=== PATIENT | female | born 1965 | race African-American/Black ===

== ENCOUNTER 2017-03-13 20:57 | Observation (INO) | payer BC, OTHER ==
[~2017-03-13] VITALS: Ht 172.7 cm; Wt 111.2 kg
[~2017-03-13 20:57] MED LIST: GLUCTAB PO; TESS200C PO; TUSSSUS PO; TYLE3 PO
[2017-03-13 21:06] VITALS: BP 133/75; PULSE 73; RESP 16; TEMP 97.9; O2SAT 99
[2017-03-13 21:22] VITALS: BP 141/78; PULSE 71; RESP 18; O2SAT 100
--- NOTE | 2017-03-13 21:40 | PD ---
HPI Chief Complaint: Pain: Acute or Chronic Time Seen by Provider: 21:27 Travel History International Travel<30 days: No Contact w/Intl Traveler<30days: No History of Present Illness HPI 52yo F with PMH of DM presents to the ED with c/o chest pain. States it started in left chest 3 days ago but since last night it has been midsternal and constant. It is sharp and worst with movement. Denies any fever, sob, n/v , abdominal pain, focal weakness or numbness. Pt has chronic cough for months that is worst at night. 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 Thinks last stress test was also 2 years ago. PFSH Past Medical History Diabetes: Yes (STS BORDERLINE) Diminished Hearing: No GERD: No (BEING TREATED FOR EPIGASTRIC PAIN) Respiratory: Yes (STS CHRONIC COUGH DUE TO MOLD IN HER APT.) : 6 Para: 5 Miscarriage: 1 Tubal Ligation: Yes Social History Alcohol Use: No Tobacco Use: No Substance Use: No Allergies-Medications (Allergen,Severity, Reaction): Coded Allergies: Naproxen (Verified Allergy, Intermediate, HIVES, 03/13/17) Reported Meds & Prescriptions Reported Meds & Active Scripts Active Reported Zantac (Ranitidine HCl) 300 Mg Tab 300 Mg PO DAILY Vitamin D3 (Cholecalciferol) 3,000 Unit Tab 4,000 Units PO DAILY Metformin (Metformin HCl) 500 Mg Tab 500 Mg PO DAILY With a meal Review of Systems Except as stated in HPI: all other systems reviewed are Neg Physical Exam Narrative GENERAL: 52yo F not in distress. SKIN: Focused skin assessment warm/dry. HEAD: Atraumatic. Normocephalic. EYES: Pupils equal and round. No scleral icterus. No injection or drainage. ENT: No nasal bleeding or discharge. Mucous membranes pink and moist. NECK: Trachea midline. No JVD. CARDIOVASCULAR: Regular rate and rhythm. No murmur appreciated. RESPIRATORY: No accessory muscle use. Clear to auscultation. Breath sounds equal bilaterally. CHEST WALL: No rash. No reproducible ttp. GASTROINTESTINAL: Abdomen soft, non-tender, nondistended. MUSCULOSKELETAL: No obvious deformities. No clubbing. No cyanosis. +Trace bilateral lower ext edema. NEUROLOGICAL: Awake and alert. No obvious cranial nerve deficits. Motor grossly within normal limits. Normal speech. PSYCHIATRIC: Appropriate mood and affect; insight and judgment normal. Data Data Last Documented VS Vital Signs Date Time Temp Pulse Resp B/P Pulse Ox O2 Delivery O2 Flow Rate FiO2 03/13/17 23:18 79 18 131/72 99 Room Air 03/13/17 21:06 97.9 Orders Electrocardiogram (03/13/17 21:34) Basic Metabolic Panel (Bmp) (03/13/17 21:34) B-Type Natriuretic Peptide (03/13/17 21:34) Ckmb (Isoenzyme) Profile (03/13/17 21:34) Complete Blood Count With Diff (03/13/17 21:34) Prothrombin Time / Inr (Pt) (03/13/17 21:34) Act Partial Throm Time (Ptt) (03/13/17 21:34) Troponin I (03/13/17 21:34) Chest, Single Ap (03/13/17 21:34) Ecg Monitoring (03/13/17 21:34) Bilateral Bp Monitoring (03/13/17 21:34) Iv Access Insert/Monitor (03/13/17 21:34) Oximetry (03/13/17 21:34) Oxygen Administration (03/13/17 21:34) Sodium Chloride 0.9% Flush (Ns Flush) (03/13/17 21:45) Nitroglycerin Sl (Nitrostat Sl) (03/13/17 21:45) Aspirin (Aspirin) (03/13/17 22:15) CKMB (03/13/17 21:40) CKMB% (03/13/17 21:40) Admit Order (Ed Use Only) (03/13/17 23:21) Labs Laboratory Tests Test 03/13/17 21:40 White Blood Count 6.8 TH/MM3 Red Blood Count 3.78 MIL/MM3 Hemoglobin 11.7 GM/DL Hematocrit 35.3 % Mean Corpuscular Volume 93.3 FL Mean Corpuscular Hemoglobin 30.9 PG Mean Corpuscular Hemoglobin 33.1 % Concent Red Cell Distribution Width 13.9 % Platelet Count 256 TH/MM3 Mean Platelet Volume 8.9 FL Neutrophils (%) (Auto) 53.6 % Lymphocytes (%) (Auto) 36.4 % Monocytes (%) (Auto) 5.3 % Eosinophils (%) (Auto) 4.1 % Basophils (%) (Auto) 0.6 % Neutrophils # (Auto) 3.6 TH/MM3 Lymphocytes # (Auto) 2.5 TH/MM3 Monocytes # (Auto) 0.4 TH/MM3 Eosinophils # (Auto) 0.3 TH/MM3 Basophils # (Auto) 0.0 TH/MM3 CBC Comment DIFF FINAL Differential Comment Prothrombin Time 10.6 SEC Prothromb Time International 1.0 RATIO Ratio Activated Partial 25.4 SEC Thromboplast Time Sodium Level 143 MEQ/L Potassium Level 3.9 MEQ/L Chloride Level 106 MEQ/L Carbon Dioxide Level 29.2 MEQ/L Anion Gap 8 MEQ/L Blood Urea Nitrogen 17 MG/DL Creatinine 0.79 MG/DL Estimat Glomerular Filtration 92 ML/MIN Rate Random Glucose 118 MG/DL Calcium Level 8.9 MG/DL Total Creatine Kinase 156 U/L Creatine Kinase MB LESS THAN 0.5 NG/ML Troponin I LESS THAN 0.02 NG/ML B-Type Natriuretic Peptide 9 PG/ML MDM Medical Decision Making Medical Screen Exam Complete: Yes Emergency Medical Condition: Yes Interpretation(s) EKG: NSR 64bpm. Normal axis. No ST segment elevation or depression. Differential Diagnosis ACS vs. musculoskeletal pain vs. GERD Narrative Course 52yo F with atypical chest pain. She does have diabetes. Labs reviewed, no leukocytosis. Troponin negative. CKMB negative. CXR showed no acute disease. Pt given aspirin 325mg PO. States nitro gives her headache so she refused sublingual nitro. Will admit pt to chest pain center. Discussed with Dr. Lam and accepted to his service. Diagnosis Primary Impression: Chest pain Qualified Code: R07.9 - Chest pain, unspecified type Admitting Information Admitting Physician Requests: Susan Saeed DO March 13, 2017 21:40
[2017-03-13] MEDS: NITROGLYCERIN 0.4 MG SL 25 TABS/BTL SL SCH ×2 (21:45→21:50)
[2017-03-13] MEDS ORDERED: SODIUM CHLORIDE 0.9% FLUSH 10 ML FLUSH IVF PRN (21:45)
[2017-03-13] MEDS ORDERED: METF500T PO (21:47)
[2017-03-13] MEDS ORDERED: ZANT300T PO (21:48)
[2017-03-13] MEDS ORDERED: VITA3000 PO (21:48)
[2017-03-13 21:51] LABS: AUTOMATED NEUTROPHIL # 3.6 TH/MM3 (1.8-7.7); BASOPHIL % 0.6 % (0.0-2.0); EOSINOPHIL # 0.3 TH/MM3 (0-0.4); EOSINOPHIL % 4.1 % (0.0-4.0); HEMATOCRIT 35.3 % (35.0-46.0); HEMO FLAGS DIFF FINAL; LYMPH % 36.4 % (9.0-44.0); LYMPHOCYTE # 2.5 TH/MM3 (1.0-4.8); MEAN CELL VOLUME 93.3 FL (80.0-100.0); MEAN CORPUSCULAR HEMOGLOBIN 30.9 PG (27.0-34.0); MEAN CORPUSCULAR HGB CONC 33.1 % (32.0-36.0); MONO % 5.3 % (0.0-8.0); NEUT % 53.6 % (16.0-70.0); PLATELET COUNT 256 TH/MM3 (150-450); RED BLOOD COUNT 3.78 MIL/MM3 (4.00-5.30); RED CELL DISTRIBUTION WIDTH 13.9 % (11.6-17.2); WHITE BLOOD COUNT 6.8 TH/MM3 (4.0-11.0)
--- NOTE | 2017-03-13 22:00 | RADHPO ---
EXAM DATE/TIME: 03/13/2017 21:40 [facility] COMPARISON: No previous studies available for comparison. INDICATIONS : Lower chest pain for four days. MEDICAL HISTORY : None. SURGICAL HISTORY : None. ENCOUNTER: Initial ACUITY: 4 - 6 days PAIN SCORE: 6/10 LOCATION: Bilateral lower chest FINDINGS: A single view of the chest demonstrates the lungs to be symmetrically aerated without evidence of mas s, infiltrate or effusion. The cardiomediastinal contours are unremarkable. Osseous structures are intact. CONCLUSION: No acute disease. Dann Portillo MD on March 13, 2017 at 21:58 Board Certified Radiologist. This report was verified electronically.
[2017-03-13 22:01] LABS: CHLORIDE 106 MEQ/L (98-107); POTASSIUM 3.9 MEQ/L (3.5-5.1); SODIUM (NA) 143 MEQ/L (136-145)
[2017-03-13 22:04] LABS: ANION GAP 8 MEQ/L (5-15); APTT (PATIENT) 25.4 SEC (24.3-30.1); BICARBONATE 29.2 MEQ/L (21.0-32.0); BLOOD UREA NITROGEN 17 MG/DL (7-18); PROTHROMBIN TIME - PATIENT 10.6 SEC (9.8-11.6)
[2017-03-13 22:07] LABS: GLOMERULAR FILTRATION RATE 92 ML/MIN (>89)
[2017-03-13 22:10] LABS: CREATINE KINASE 156 U/L (26-192)
[2017-03-13] MEDS ORDERED: ASPIRIN 325 MG TAB PO ONE (22:15)
[2017-03-13 22:22] LABS: CKMB LESS THAN 0.5 NG/ML (0.5-3.6)
[2017-03-13 22:35] VITALS: BP_SYST 122; BP_SYST 131; BP_DIAS 61; BP_DIAS 69; PULSE 73; RESP 18; O2SAT 98
[2017-03-13 22:55] VITALS: BP 122/69; PULSE 84; RESP 18; O2SAT 100
[2017-03-13 23:18] VITALS: BP 131/72; PULSE 79; RESP 18; O2SAT 99
[2017-03-13 23:30] VITALS: BP 123/71; PULSE 62; RESP 20; O2SAT 100
[2017-03-13] MEDS ORDERED: SODIUM CHLOR 0.9% 1000 ML INJ 1,000 ML IV SCH (23:55)
[2017-03-14] VITALS (7 sets, daily range): BP systolic 116–151; BP diastolic 75–85; PULSE 55–65; RESP 16–18; TEMP 97.3–97.9; O2SAT 95–100
[2017-03-14] MEDS ORDERED: SENNOSIDES 8.6 MG TAB PO PRN
[2017-03-14] MEDS ORDERED: ONDANSETRON HCL 4 MG/2 ML VIAL IVP PRN
[2017-03-14] MEDS ORDERED: NALOXONE HCL 0.4 MG/ML AMP IV PRN
[2017-03-14] MEDS ORDERED: SODIUM CHLORIDE 0.9% FLUSH 10 ML FLUSH IV FLUSH PRN
[2017-03-14] MEDS ORDERED: MORPHINE SULFATE 4 MG/ML INJ IV PRN
[2017-03-14] MEDS ORDERED: ACETAMINOPHEN 325 MG TAB PO PRN ×2
[2017-03-14] MEDS ORDERED: DEXTROSE 50% IN WATER 50 ML VIAL(D50) IV PRN (01:30)
[2017-03-14] MEDS ORDERED: DEXTROSE 5% IN WATE 1000ML INJ 1,000 ML IV SCH (01:30)
[2017-03-14] MEDS ORDERED: GLUCAGON 1 MG/ML VIAL OTHER PRN (01:30)
[2017-03-14 01:43] LABS: CREATINE KINASE 151 U/L (26-192)
[2017-03-14 01:55] LABS: CKMB LESS THAN 0.5 NG/ML (0.5-3.6)
[2017-03-14] MEDS: INSULIN ASPART SUPPLEMENTAL SCALE SQ SCH ×2 (07:00→11:00)
--- NOTE | 2017-03-14 07:11 | HHI.HP ---
[facility] Aadli Gongora DO Admission Diagnosis Chest pain Diagnoses: (1) Chest pain Diagnosis: Principal (2) Diabetes Diagnosis: Principal Chief Complaint: Chest pain Travel History International Travel<30 Days: No Contact w/Intl Traveler <30 Da: No Traveled to Known Affected Are: No History of Present Illness Written by Solis Merino, acting as scribe for Dr. Grimaldo on 03/14/17 at 07: 32. 52-year-old female with known history of diabetes, gastroesophageal reflux who presented to hospital for evaluation of chest discomfort. Patient states that her symptoms started approximately a month ago when she had diagnosed with bronchitis. She states that she usually gets seasonal allergies which causes her to cough for a prolonged period of time. She was treated in January for bronchitis with Tessalon, Zithromax. Ever since then she has been having cough mainly at nighttime. She indicates that she has had intermittent chest discomfort over last month, however worsening since Sunday. She states that the discomfort is located in the midsternal region and in the left anterior chest. She indicates that the pain usually happens whenever she does not eat on time and she sometimes feels like indigestion. Intermittently she will belch and discomfort will go away. Sunday she states the pain came back more intense and she took an aspirin and went to bed and when she woke up it was improved. She went to work yesterday and every time that she moved or twisted her upper torso she states that she was getting a stabbing sensation in the middle part of her chest. Because of those changes she decided come to emergency department for evaluation. Patient denies any radiation to neck, back , shoulder, arm, denies any nausea, vomiting, diaphoresis, shortness of breath, dyspnea, lightheadedness, dizziness. Patient indicates that the pain is a constant pain 2/10 on a pain scale. She states that in 2003 she did go to [facility] and she underwent an exercise stress test at that time it was normal. Patient does have gastroesophageal reflux issue being treated by Dr. Lima. She does have a appointment set up for upper endoscopy on March. She is actively taken Pepcid for treatment. Patient was evaluated in emergency department and because of her underlying symptoms, risk factors she is recommended observation chest pain center. Review of Systems Constitutional: DENIES: Diaphoretic episodes, Fatigue, Fever, Weight gain, Weight loss, Chills, Dizziness, Change in appetite, Night Sweats Eyes: DENIES: Blurred vision, Diplopia, Eye inflammation, Eye pain, Vision loss , Double Vision Ears, nose, mouth, throat: DENIES: Vertigo, Nasal discharge, Throat pain, Ear Pain, Running Nose, Sinus Pain Respiratory: DENIES: Apneas, Cough, Snoring, Wheezing, Hemoptysis, Sputum production, Shortness of breath Cardiovascular: COMPLAINS OF: Chest pain, DENIES: Palpitations, Syncope, Dyspnea on Exertion, Lower Extremity Edema, Orthopnea Gastrointestinal: DENIES: Abdominal pain, Black stools, Bloody stools, Constipation, Diarrhea, Nausea, Vomiting, Difficulty Swallowing, Anorexia Musculoskeletal: COMPLAINS OF: Joint pain, Back pain Neurologic: DENIES: Abnormal gait, Headache, Localized weakness, Paresthesias, Seizures, Speech Problems, Tremor, Poor Balance Past Family Social History Past Medical History Diabetes Gastroesophageal reflux Past Surgical History Tubal ligation Cholecystectomy Reported Medications Reported Meds & Active Scripts Active Reported Zantac (Ranitidine HCl) 300 Mg Tab 300 Mg PO DAILY Vitamin D3 (Cholecalciferol) 3,000 Unit Tab 4,000 Units PO DAILY Metformin (Metformin HCl) 500 Mg Tab 500 Mg PO DAILY With a meal Allergies: Coded Allergies: Naproxen (Verified Allergy, Intermediate, HIVES, 03/13/17) Family History Reviewed and unremarkable for any heart disease, diabetes, cancer, seizures, stroke Social History Patient denies any tobacco, alcohol or illicit drugs Physical Exam Vital Signs Vital Signs Date Time Temp Pulse Resp B/P Pulse Ox O2 Delivery O2 Flow Rate FiO2 03/14/17 04:00 97.3 55 16 116/81 95 03/14/17 02:23 18 03/14/17 01:00 58 03/14/17 00:50 64 18 119/75 100 03/14/17 00:47 99 21 03/13/17 23:30 62 20 123/71 100 Room Air 03/13/17 23:18 79 18 131/72 99 Room Air 03/13/17 22:55 84 18 122/69 100 Room Air 03/13/17 22:35 73 18 131/61 98 Room Air 122/69 03/13/17 21:22 03/13/17 21:22 71 18 141/78 100 Room Air 03/13/17 21:06 97.9 73 16 133/75 99 Physical Exam GENERAL: Well-developed, well-nourished, in no acute distress. alert and orientated HEENT: Head is normocephalic without any lesions or masses noted. Facial features are symmetric. Eyes: Pupils equal round reactive to light. Extraocular muscles are intact. Conjunctivae were clear. Oropharyngeal: Pharynx without any erythema edema. Tongue is midline without deviation. Buccal mucosa is moist without any masses or lesions NECK: Supple without any masses. Trachea midline no deviation. No JVD, no bruits are appreciated CARDIAC: Regular rhythm, regular rate. S1/S2 are heard. No murmurs gallops or rubs. Reproducible chest wall tenderness LUNGS: Clear to auscultation bilaterally. No wheeze, rhonchi or rales. No use of accessory muscles on inspiration or expiration. ABDOMEN: Soft, nontender. Nondistended. Bowel sounds heard in all 4 quadrants. No organomegaly or masses. Negative rebound, negative guarding EXTREMITIES: No edema, pulses are equal bilaterally. No cyanosis or clubbing NEUROLOGY: Mood and affect appear appropriate. Cranial nerves II through XII grossly intact. Muscle strength 5/5 in upper and lower extremities bilaterally. Deep tendon reflexes are 2+ in upper and lower extremities bilaterally. Laboratory Laboratory Tests Test 03/13/17 03/14/17 21:40 00:30 White Blood Count 6.8 Red Blood Count 3.78 Hemoglobin 11.7 Hematocrit 35.3 Mean Corpuscular Volume 93.3 Mean Corpuscular Hemoglobin 30.9 Mean Corpuscular Hemoglobin 33.1 Concent Red Cell Distribution Width 13.9 Platelet Count 256 Mean Platelet Volume 8.9 Neutrophils (%) (Auto) 53.6 Lymphocytes (%) (Auto) 36.4 Monocytes (%) (Auto) 5.3 Eosinophils (%) (Auto) 4.1 Basophils (%) (Auto) 0.6 Neutrophils # (Auto) 3.6 Lymphocytes # (Auto) 2.5 Monocytes # (Auto) 0.4 Eosinophils # (Auto) 0.3 Basophils # (Auto) 0.0 CBC Comment DIFF FINAL Differential Comment Prothrombin Time 10.6 Prothromb Time International 1.0 Ratio Activated Partial 25.4 Thromboplast Time Sodium Level 143 Potassium Level 3.9 Chloride Level 106 Carbon Dioxide Level 29.2 Anion Gap 8 Blood Urea Nitrogen 17 Creatinine 0.79 Estimat Glomerular Filtration 92 Rate Random Glucose 118 Calcium Level 8.9 Total Creatine Kinase 156 151 Creatine Kinase MB LESS THAN 0.5 LESS THAN 0.5 Troponin I LESS THAN 0.02 LESS THAN 0.02 B-Type Natriuretic Peptide 9 Result Diagram: 03/13/17213903/13/172139 Imaging Last Impressions Chest X-Ray 03/13/172133 Signed Impressions: Service Date/Time: Monday, March 13, 2017 21:40 - CONCLUSION: No acute disease. Dann Portillo MD Assessment and Plan Assessment and Plan Chest pain Patient with increased risk factors include age, diabetes Patient will be ruled out for acute coronary event with serial cardiac enzymes , serial EKGs Nuclear stress test was performed which was unremarkable for any ischemia, low risk We'll continue aspirin, oxycodone for pain. Patient refuses nitroglycerin because it causes her to have severe headache Possible etiologies could be musculoskeletal, bronchospasm, pleurisy Diabetes Hold metformin at this time, until diet is resumed Accu-Cheks and sliding scale insulin DVT prevention Sequential compression devices Discharge disposition Discharge home in stable condition Activity: Ad letty. Diet: Diabetic diet Medications per medication reconciliation Follow-up primary medical doctor in one week This note was transcribed by scribe [Solis Merino]. I, Dr. Abran Grimaldo personally performed the history, physical exam, and medical decision making; and confirmed the accuracy of the information in the transcribed note. Authenticated by Dr. Abran Grimaldo on 03/14/17 at 09:16. Problem Qualifiers (1) Chest pain: Qualified Code: R07.9 - Chest pain, unspecified type (2) Diabetes: Qualified Code: E11.8 - Type 2 diabetes mellitus with complication, without long-term current use of insulin Solis Merino March 14, 2017 07:11 Abran Grimaldo MD March 14, 2017 09:16
[2017-03-14 07:36] LABS: AUTOMATED NEUTROPHIL # 2.5 TH/MM3 (1.8-7.7); BASOPHIL % 0.2 % (0.0-2.0); EOSINOPHIL # 0.2 TH/MM3 (0-0.4); HEMATOCRIT 34.4 % (35.0-46.0); HEMO FLAGS DIFF FINAL; LYMPH % 41.6 % (9.0-44.0); LYMPHOCYTE # 2.2 TH/MM3 (1.0-4.8); MEAN CELL VOLUME 93.6 FL (80.0-100.0); MEAN CORPUSCULAR HEMOGLOBIN 31.6 PG (27.0-34.0); MEAN CORPUSCULAR HGB CONC 33.7 % (32.0-36.0); MONO % 8.6 % (0.0-8.0); NEUT % 45.6 % (16.0-70.0); PLATELET COUNT 240 TH/MM3 (150-450); RED BLOOD COUNT 3.68 MIL/MM3 (4.00-5.30); RED CELL DISTRIBUTION WIDTH 13.8 % (11.6-17.2); WHITE BLOOD COUNT 5.4 TH/MM3 (4.0-11.0)
[2017-03-14 07:48] LABS: POTASSIUM 3.8 MEQ/L (3.5-5.1)
[2017-03-14 07:51] LABS: BICARBONATE 28.9 MEQ/L (21.0-32.0)
[2017-03-14 07:56] LABS: CREATINE KINASE 124 U/L (26-192)
[2017-03-14 08:08] LABS: CKMB LESS THAN 0.5 NG/ML (0.5-3.6)
[2017-03-14] MEDS ORDERED: SODIUM CHLORIDE 0.9% FLUSH 10 ML FLUSH IV FLUSH SCH (09:00)
[2017-03-14] MEDS ORDERED: DOCUSATE SODIUM 100 MG CAP PO SCH (09:00)
[2017-03-14] MEDS ORDERED: REGADENOSON INJ 0.4 MG/5 ML SYR IV ONE (09:51)
--- NOTE | 2017-03-14 11:24 | RADHPO ---
EXAM DATE/TIME: 03/14/2017 09:58 [facility] COMPARISON: No previous studies available for comparison. INDICATIONS : Midsternal chest pain for 3 days. Angina. DOSE: 35 mCi Tc99m Myoview at stress. 11 mCi Tc99m Myoview at rest. 0.4 mg Lexiscan STRESS SYMPTOMS: Tired feeling, abdominal pressure and headache. EJECTION FRACTION: 62% MEDICAL HISTORY : Gastroesophageal reflux disease. Diabetes mellitus type 2. SURGICAL HISTORY : Tubal ligation. Cholecystectomy. ENCOUNTER: Initial ACUITY: 3 days PAIN SCALE: 8/10 LOCATION: Midsternal chest TECHNIQUE: The patient underwent pharmacologic stress with infusion of prescribed dose. Continuous ECG tracing was monitored during stress. Gated SPECT imaging was performed after stress and conventional SPECT i maging was performed at rest. The examination was performed on a SPECT/CT scanner, both attenuation and non-corrected datasets were reviewed. FINDINGS: DISTRIBUTION: The maximum perfused segment at stress is in the posterobasal wall. PERFUSION STUDY: The pattern of perfusion at stress is within normal limits. GATED STUDY: There is intact wall motion and thickening without hypokinetic or dyskinetic segments. CONCLUSION: Normal examination. RISK CATEGORY: Low (<1% Annual Mortality Rate) Jose Conti MD on March 14, 2017 at 11:20 Board Certified Radiologist. This report was verified electronically.
--- NOTE | 2017-03-14 13:07 | HHI.DCPOC ---
Discharge Care Plan Diagnosis: (1) Chest pain Goals to Promote Your Health * To prevent worsening of your condition and complications * To maintain your health at the optimal level Directions to Meet Your Goals Take your medications as prescribed Follow your dietary instruction Follow activity as directed Keep your appointments as scheduled Take your immunizations and boosters as scheduled If your symptoms worsen call your PCP, if no PCP go to Urgent Care Center or Emergency Room Smoking is Dangerous to Your Health. Avoid second hand smoke Call the 24-hour hour crisis hotline for domestic abuse at Solis Merino March 14, 2017 13:07
--- NOTE | 2017-03-14 13:45 | TR ---
Date Performed: 03/14/2017 Time Performed: 10:23:26 DOCTOR: Harman Bassett DRUG LIST: CLINICAL HISTORY: REASON FOR TEST: Chest pain REASON FOR ENDING: OBSERVATION: CONCLUSION: Lexiscan stress test was performed under standard four minute protocol. Radionuclid e was injected one minute prior to ending the test. No electrocardiographic abormalities were present to suggest ischemia. Nuclear imaging and interpretation are pending. COMMENTS:
--- NOTE | 2017-03-14 19:29 | EKG ---
Date Performed: 03/14/2017 Time Performed: 03:35:04 PTAGE: 52 years EKG: Sinus bradycardia rSr'(V1) - probable normal variant Borderline ECG Compared to prior iris ng no significant change DOCTOR: Dillon Carmona Interpretating Date/Time 03/14/2017 19:27:44
--- NOTE | 2017-03-14 19:32 | EKG ---
Date Performed: 03/14/2017 Time Performed: 00:33:24 PTAGE: 52 years EKG: Sinus bradycardia. rSr'(V1) - probable normal variant Borderline ECG PREVIOUS TRACING : 03/13/2017 21.43 Compared to prior tracing no significant change DOCTOR: Dillon Carmona Interpretating Date/Time 03/14/2017 19:30:42
--- NOTE | 2017-03-14 19:35 | EKG ---
Date Performed: 03/13/2017 Time Performed: 21:43:28 PTAGE: 52 years EKG: Sinus rhythm . rSr'(V1) - probable normal variant Normal ECG NO PREVIOUS TRACING DOCTOR: Dillon Carmona Interpretating Date/Time 03/14/2017 19:35:14
[2017-03-14] MEDS ORDERED: FAMOTIDINE 20 MG TAB PO SCH (21:00)
[2017-03-15] MEDS ORDERED: metFORMIN HCL 500 MG TAB PO SCH (09:00)
[2017-03-15] MEDS ORDERED: CHOLECALCIFEROL (VIT D3) 1000 UNIT TAB PO SCH (09:00)
[2017-04-04] MEDS ORDERED: PANT40TA3 PO (12:10)
== END 2017-03-14 14:26 | disposition home or self-care (01) ==
LOC: PHED 20:57 → PHEDA 23:23 → PH3A 03-14 00:50
PROVIDERS: ADMIT Hospitalist; ATTEND Hospitalist
DX: R07.89 Other chest pain (principal); E11.8 Type 2 diabetes mellitus with unspecified complications; K21.9 Gastro-esophageal reflux disease without esophagitis; Z79.84 Long term (current) use of oral hypoglycemic drugs; Z88.8 Allergy status to other drugs, medicaments and biological substances
CPT/HCPCS: 71010; 78452; 80048; 82550; 82552; 82948; 83880; 84484; 85025; 85610; 85730; 93005; 93017; 99285; A9502; G0378; J2785; J7030; J7070

== ENCOUNTER → 2017-04-04 | Outpatient (CLI) | payer OTHER ==
[~2017-04-04] VITALS: Ht 172.7 cm; Wt 111.5 kg
[~2017-04-04] MED LIST changes: +CHLORHEXIDINE GLUCONATE 2 % 1 PACK (2 CLOTHS) TOPICAL PRN; -GLUCTAB PO; +INSULIN HUMAN REGULAR 1,000 UNITS/10 ML VIAL SQ PRN; +LACTATED RINGER'S 1000 ML IV PRN; +METF500T PO; +METOPROLOL TARTRATE 25 MG TAB PO PRN; +PANT40TA3 PO; +POVIDONE IODINE 5% (ANTISEPSIS KIT) 4 APPLICATIONS EACH NARE PRN; +PROPOFOL 200 MG/20 ML AMP IV PUSH ONE; +SODIUM CHLORID 0.9% 500 ML IV PRN; -TESS200C PO; -TUSSSUS PO; -TYLE3 PO; +VITA3000 PO; +ZANT300T PO
[2017-04-04 12:14] VITALS: BP 110/62; PULSE 60; RESP 16; TEMP 97.2; O2SAT 99
[2017-04-04 14:08] VITALS: TEMP 97.8
[2017-04-04 14:30] VITALS: BP 118/69; PULSE 69; RESP 18; O2SAT 100
--- NOTE | 2017-04-06 08:03 | MR ---
cc: FUAD MORGAN,CRISTINO CUEVAS M.D. DATE: 04/04/2017 DATE OF : 1965 TYPE OF PROCEDURE Esophagogastroduodenoscopy with biopsy. INDICATION FOR PROCEDURE The patient is a 52-year-old female who presented to the office with GERD and non-cardiac chest pain. Apparently a pulmonary work-up and cardiac work-up were unremarkable. She has been on pantoprazole in the past. This procedure is being done to evaluate the source of these problems. ENDOSCOPIST Cristino Wang MD TELECASTING ENGINEER GI personnel. ANESTHESIA Diprivan per CLAIM TAKER. INTRAVENOUS MEDICATION See above. INSTRUMENT Pentax video adult gastroscope. PHYSICAL EXAMINATION VITAL SIGNS: Quite stable. She is afebrile. LUNGS: Unremarkable. HEART: No murmurs. ABDOMEN: Soft, nontender. NEUROLOGIC: Alert and oriented x3. CONTINUOUS MONITORING The patient had routine blood pressure monitoring, pulse oximeter/oxygen, and cardiac monitoring. INFORMED CONSENT Obtained with full verbal understanding, the indication for procedure (see above), risks and complications (bleeding, perforation, infection, arrhythmias, mediastinitis, small possibility of , etc.), limitations (we may not see everything due to prep and anatomy especially if there is a lot of blood in the stomach or food is there, etc.), alternatives (upper GI, small bowel follow through, surgery, etc.), benefits (we can potentially see the entire esophagus, stomach, and part of the duodenum, and biopsy, cauterize, inject or dilate various lesions or abnormalities if needed, etc.) All questions were answered, all parties agreed to the procedure. DESCRIPTION OF PROCEDURE The patient was placed in the left lateral decubitus position. The above noted sedation was given in very slow incremental doses. Once an optimal level of sedation was achieved, then the above mentioned gastroscope was inserted and passed into the hypopharyngeal area, esophagus which was inspected in its entire length, through the stomach, which was seen in straight view, as well as retroflex view, and the gastric pool was suctioned. The stomach was fully insufflated. The pylorus was entered and the scope passed through the duodenal bulb into the second portion of the duodenum. FINDINGS 1. Esophagus: The gastroesophageal junction was located at 36 cm. The GE junction was irregular. There was one column of salmon-colored mucosa extending upwards for approximately 5 mm. At the top of this mucosa was a 5 mm crater ulcer. There was no hiatal hernia. No esophageal varices or Unique esophagitis seen. On the way out the ulcer and salmon-colored mucosa was biopsied to check for Parrish's and malignancy. 2. Stomach: The stomach was seen on straight view as well as retroflex view. It did distend quite fully. No masses, AVMs, polypoid lesions or gastric varices were seen. In the prepyloric area there were three superficial ulcers, approximately 5 mm in size without a visible vessel. There were also some erosions with black eschars but were not bleeding. Superficial gastritis was also noted there. Biopsies were taken from the ulcers and erosions as well as the angularis, body and fundus to rule out H. Pylori. 3. Duodenum: The pylorus is patent. The duodenal bulb, second and third portion were grossly unremarkable. SPECIMENS GE junction and stomach. TOLERANCE OF PROCEDURE The scope was totally withdrawn. The patient tolerated the procedure quite well with no immediate complications. Lungs, heart, vital signs and the rest of the physical exam was unchanged post procedure. The patient was transported in a stable state to the recovery area. IMPRESSION 1. Esophageal ulcer. 2. Multiple gastric ulcers as mentioned above. 3. Multiple gastric erosions/gastritis as mentioned above. RECOMMENDATIONS 1. Await biopsies. 2. Post-procedure protocol. 3. Return visit in my office in 1-2 months. 4. Probably will need a repeat upper endoscopy to assess healing, but will await biopsies first. 5. Change pantoprazole to something stronger such as Dexilant 60 mg, 30 minutes before breakfast, side effects were discussed. 6. The patient may be discharged once post-anesthesia protocol has been met. 7. Resume diet and other medications. She states she is currently not taking any NSAIDs. Cristino Wang MD SP/BT /2:14 PM /7:51 AM DA
== END ==
LOC: HEND 11:15
PROVIDERS: ATTEND Internal Medicine Gastroenterology
DX: K21.9 Gastro-esophageal reflux disease without esophagitis (principal); R07.89 Other chest pain; K29.50 Unspecified chronic gastritis without bleeding; K22.10 Ulcer of esophagus without bleeding
CPT/HCPCS: 88305; 88312

== ENCOUNTER → 2017-06-18 | Outpatient (CLI) | payer OTHER ==
[~2017-06-18] MED LIST changes: -CHLORHEXIDINE GLUCONATE 2 % 1 PACK (2 CLOTHS) TOPICAL PRN; +DEXI60CA2; -INSULIN HUMAN REGULAR 1,000 UNITS/10 ML VIAL SQ PRN; -LACTATED RINGER'S 1000 ML IV PRN; -METOPROLOL TARTRATE 25 MG TAB PO PRN; -POVIDONE IODINE 5% (ANTISEPSIS KIT) 4 APPLICATIONS EACH NARE PRN; -PROPOFOL 200 MG/20 ML AMP IV PUSH ONE; -SODIUM CHLORID 0.9% 500 ML IV PRN
--- NOTE | 2017-06-18 17:08 | RADRPT ---
EXAM DATE/TIME: 06/18/2017 14:06 [facility] COMPARISON: No previous studies available for comparison. INDICATIONS : Bilateral flank pain. ORAL CONTRAST: No oral contrast ingested. RADIATION DOSE: 16.63 CTDIvol (mGy) MEDICAL HISTORY : None SURGICAL HISTORY : Tubal ligation. Cholecystectomy. ENCOUNTER: Initial ACUITY: 3 days PAIN SCALE: 4/10 LOCATION: Bilateral flank TECHNIQUE: Volumetric scanning of the abdomen and pelvis was performed. Using automated exposure control and ad justment of the mA and/or kV according to patient size, radiation dose was kept as low as reasonably achievable to obtain optimal diagnostic quality images. DICOM format image data is available electro nically for review and comparison. FINDINGS: LOWER LUNGS: The visualized lower lungs are clear. LIVER: Homogeneous density without lesion. There is no dilation of the biliary tree. No calcified gallston es. SPLEEN: Normal size without lesion. PANCREAS: Within normal limits. KIDNEYS: Normal in size and shape. There is no mass, stone, or hydronephrosis. ADRENAL GLANDS: Within normal limits. VASCULAR: There is no aortic aneurysm. BOWEL/MESENTERY: The stomach, small bowel, and colon demonstrate no acute abnormality. There is no free intraperitone al air or fluid. ABDOMINAL WALL: Within normal limits. RETROPERITONEUM: There is no lymphadenopathy. BLADDER: No wall thickening or mass. REPRODUCTIVE: Within normal limits. INGUINAL: There is no lymphadenopathy or hernia. MUSCULOSKELETAL: Within normal limits for patient age. CONCLUSION: Negative. I do not see an etiology for the bilateral flank pain. Enrique Bartholomew MD FACR on June 18, 2017 at 17:05 Board Certified Radiologist. This report was verified electronically.
== END ==
LOC: HRAD 13:05
PROVIDERS: ATTEND Neuromusculoskeletal Medicine & OMM
DX: R10.9 Unspecified abdominal pain (principal)
CPT/HCPCS: 74176

== ENCOUNTER → 2017-07-18 | Outpatient (CLI) | payer OTHER ==
[~2017-07-18] VITALS: Ht 170.2 cm; Wt 112.3 kg
[~2017-07-18] MED LIST changes: +CHLORHEXIDINE GLUCONATE 2 % 1 PACK (2 CLOTHS) TOPICAL PRN; +INSULIN HUMAN REGULAR 1,000 UNITS/10 ML VIAL SQ PRN; +LACTATED RINGER'S 1000 ML IV PRN; +LIDOCAINE HCL 1% PF 5 ML AMPULE OTHER ONE; +METOPROLOL TARTRATE 25 MG TAB PO PRN; +POVIDONE IODINE 5% (ANTISEPSIS KIT) 4 APPLICATIONS EACH NARE PRN; +PROPOFOL 200 MG/20 ML AMP IV ONE; +SODIUM CHLORID 0.9% 500 ML IV PRN
[2017-07-18 09:46] VITALS: BP 125/70; PULSE 67; RESP 18; TEMP 98.2; O2SAT 98
--- NOTE | 2017-07-18 11:26 | GIPROC ---
[facility] [address] [facility]. [facility], [address] EGD PROCEDURE REPORT EXAM DATE: 07/18/2017 PATIENT NAME: Malka Piña MR #: [id number] BIRTHDATE: 1965 ATTENDING: Cristino Wang MD ORDER #: [id number] HUMAN RESOURCES CLERK: Dany Campoverde and Layne Hope STATUS: outpatient INDICATIONS: The patient is a 52 yr old female here for an EGD due to Gastric ulcer, hx of Marito's PROCEDURE PERFORMED: EGD, diagnostic MEDICATIONS: None and Per Anesthesia. TOPICAL ANESTHETIC: none CONSENT: The patient understands the risks and benefits of the procedure and understands that these risks include, but are not limited to: sedation, allergic reaction, infection, perforation and/or bleeding. Alternative means of evaluation and treatment include, among others: physical exam, x-rays, and/or surgical intervention. The patient elects to proceed with this endoscopic procedure. medical equipment was checked for proper function. Hand hygiene and appropriate measures for infection prevention was taken. After the risks, benefits and alternatives of the procedure were thoroughly explained, Informed consent was verified, confirmed and timeout was successfully executed by the treatment team. The patient was anesthetized with topical anesthesia and the Pentax [id number] endoscope was introduced through the mouth and advanced to the third portion of the duodenum. Retroflexed views revealed no abnormalities The gastroscope was then slowly withdrawn and removed. 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 STOMACH: The mucosa of the stomach appeared normal. DUODENUM: The duodenal mucosa appeared normal. ADVERSE EVENTS: There were no complications. IMPRESSIONS: 1. There was short segment Parrish's esophagus found at the gastroesophageal junction 2. The mucosa of the stomach appeared normal 3. Normal duodenal mucosa 4. Retroflexed views revealed no abnormalities RECOMMENDATIONS: Colonoscopy PATIENT CONDITION: stable DISPOSITION: Home REPEAT EXAM: Return 1 year EGD Cristino Wang MD eSigned: Cristino Wang MD 07/18/2017 11:25 AM cc: PATIENT NAME: Malka Piña MR#: [id number]
--- NOTE | 2017-07-18 11:35 | GIPROC ---
[facility] [address] [facility]. [facility] [place], [address] COLONOSCOPY PROCEDURE REPORT EXAM DATE: 07/18/2017 PATIENT NAME: Malka Piña MR #: [id number] BIRTHDATE: 1965 ENDOSCOPIST: Cristino Wang MD ORDER #: [id number] TEXTILE WORKER: Layne Hope and Dany Campoverde STATUS: outpatient INDICATIONS: The patient is a 52 yr old female here for a colonoscopy due to follow up of adenomatous colonic polyp(s) PROCEDURE PERFORMED: Colonoscopy with biopsy MEDICATIONS: None and Per Anesthesia. PREP QUALITY: fair PREP TYPE:GoLytely ESTIMATED BLOOD LOSS: None CONSENT: The patient understands the risks and benefits of the procedure and understands that these risks include, but are not limited to: sedation, allergic reaction, infection, perforation and/or bleeding. Alternative means of evaluation and treatment include, among others: physical exam, x-rays, and/or surgical intervention. The patient elects to proceed with this endoscopic procedure. medical equipment was checked for proper function. Hand hygiene and appropriate measures for infection prevention was taken. After the risks, benefits and alternatives of the procedure were thoroughly explained, Informed consent was verified, confirmed and timeout was successfully executed by the treatment team. A digital exam was performed and revealed no abnormalities of the rectum The Pentax [id number] endoscope was introduced through the anus and advanced to the cecum, which was identified by both the appendix and ileocecal valve. The instrument was then slowly withdrawn as the colon was fully examined. COLON FINDINGS: Two smooth and polypoid shaped sessile polyps measuring 2 mm in size were found in the proximal descending colon. Multiple biopsies were performed using cold forceps. Mild diverticulosis was noted in the sigmoid colon and descending colon. Small internal hemorrhoids were found. Retroflexed views revealed no abnormalities The scope was then completely withdrawn from the patient and the procedure terminated. PROCEDURE WITHDRAWAL TIME:15minutes ADVERSE EVENTS: There were no complications. IMPRESSIONS: 1. Two sessile polyps were found in the proximal descending colon; multiple biopsies were performed using cold forceps 2. Mild diverticulosis was noted in the sigmoid colon and descending colon 3. Small internal hemorrhoids 4. Retroflexed views revealed no abnormalities 5. Was performed 6. Revealed no abnormalities of the rectum RECOMMENDATIONS: 1. Await biopsy results. Biopsy results will not be ready for 7-10 days. If you don't hear from us in two weeks, call our office for results. 2. High fiber diet RECALL: Return 3 years Colonoscopy Cristino Wang MD eSigned: Cristino Wang MD 07/18/2017 11:35 AM cc: PATIENT NAME: Malka Piña MR#: [id number]
[2017-07-18 12:17] VITALS: BP 133/81; PULSE 64; RESP 18; TEMP 96.8; O2SAT 100
== END ==
LOC: HEND 09:07
PROVIDERS: ATTEND Internal Medicine Gastroenterology
DX: K25.9 Gastric ulcer, unspecified as acute or chronic, without hemorrhage or perforation (principal); K22.70 Barrett's esophagus without dysplasia; K63.5 Polyp of colon; E11.9 Type 2 diabetes mellitus without complications; G47.30 Sleep apnea, unspecified
CPT/HCPCS: 00740; 43235; 45380; 88305; J7120

== ENCOUNTER 2018-03-13 09:06 | Observation (INO) | payer OTHER ==
[~2018-03-13] VITALS: Ht 172.7 cm; Wt 114.5 kg
[2018-03-13] VITALS (13 sets, daily range): BP systolic 107–132; BP diastolic 62–81; PULSE 61–83; RESP 18–20; TEMP 96.2–97.8; O2SAT 97–100
[~2018-03-13 09:06] MED LIST changes: -CHLORHEXIDINE GLUCONATE 2 % 1 PACK (2 CLOTHS) TOPICAL PRN; -DEXI60CA2; +DEXI60CA3; +FLUT1SPR5 EACH NARE; -INSULIN HUMAN REGULAR 1,000 UNITS/10 ML VIAL SQ PRN; -LACTATED RINGER'S 1000 ML IV PRN; -LIDOCAINE HCL 1% PF 5 ML AMPULE OTHER ONE; +MELO7.5T27 PO; -METOPROLOL TARTRATE 25 MG TAB PO PRN; -PANT40TA3 PO; -POVIDONE IODINE 5% (ANTISEPSIS KIT) 4 APPLICATIONS EACH NARE PRN; -PROPOFOL 200 MG/20 ML AMP IV ONE; +RANI150T PO; -SODIUM CHLORID 0.9% 500 ML IV PRN; -ZANT300T PO
--- NOTE | 2018-03-13 09:38 | PD ---
HPI Chief Complaint: Chest Pain Time Seen by Provider: 09:22 Travel History International Travel<30 days: No Contact w/Intl Traveler<30days: No Traveled to known affect area: No History of Present Illness HPI 53-year-old female with a history of diabetes mellitus presents emergency department for evaluation of chest pain that she woke up with about 6:00 this morning. Patient says that the pain is located midsternal and radiates to the back. Says the pain is worse with deep deep breaths, described as achy, 8/10 pain. She says that she coughed up one episode of streaked mucus so she decided to come in for evaluation. She admits to one episode of nausea but denies any significant nausea or vomiting. Says that for approximately 1 week she has had cough cold-like symptoms and has been evaluated by urgent care says that she was given amoxicillin, prednisone and tramadol for lower rib pain, cough and congestion. She admits to a history of similar chest discomfort associated with cold-like symptoms. Patient says that she was evaluated at [facility] for a similar episode of chest pain 2-3 years ago and received a stress test which was normal. Patient previously followed Dr. Bustos but this is been 2-3 years. She denies history of hypertension, hyperlipidemia, or family history of cardiac disease. Denies recent travel, surgeries, history of DVT/PE, cancer. She denies any other medical issues. She does not take aspirin on a daily basis. PFSH Past Medical History Cancer: No Cardiovascular Problems: No Diabetes: Yes Patient Takes Glucophage: Yes Diminished Hearing: No Endocrine: Yes Gastrointestinal Disorders: Yes (GERD) Genitourinary: No Immune Disorder: No Musculoskeletal: No Neurologic: No Psychiatric: No Reproductive: No Respiratory: No ?: Not : 6 Para: 5 Miscarriage: 1 Tubal Ligation: Yes Past Surgical History Cholecystectomy: Yes (laparoscopic) Gynecologic Surgery: Yes (tubal ligation) Social History Alcohol Use: Yes (twice yearly) Tobacco Use: No Substance Use: No Allergies-Medications (Allergen,Severity, Reaction): Coded Allergies: naproxen (Verified Allergy, Intermediate, HIVES, 10/17/17) Reported Meds & Prescriptions Reported Meds & Active Scripts Active Flonase Nasal [place] (Fluticasone Nasal [place]) 50 Mcg/Act [place] 100 Mcg EACH NARE BID Reported Metformin (Metformin HCl) 500 Mg Tab 500 Mg PO BIDPC Vitamin D3 (Cholecalciferol) 3,000 Unit Tab 4,000 Units PO DAILY Review of Systems Except as stated in HPI: all other systems reviewed are Neg Physical Exam Narrative GENERAL: Well-developed, well-nourished in mild distress, anxious SKIN: Focused skin assessment warm/dry. HEAD: Atraumatic. Normocephalic. EYES: Pupils equal and round. No scleral icterus. No injection or drainage. ENT: No nasal bleeding or discharge. Mucous membranes pink and moist. NECK: Trachea midline. No JVD. No lymphadenopathy CARDIOVASCULAR: Regular rate and rhythm. No murmur appreciated. RESPIRATORY: No accessory muscle use. Clear to auscultation. Breath sounds equal bilaterally. GASTROINTESTINAL: Abdomen soft, non-tender, nondistended. Hepatic and splenic margins not palpable. MUSCULOSKELETAL: No obvious deformities. No clubbing. No cyanosis. No edema. NEUROLOGICAL: Awake and alert. No obvious cranial nerve deficits. Motor grossly within normal limits. Normal speech. PSYCHIATRIC: Appropriate mood and affect; insight and judgment normal. Data Data Last Documented VS Vital Signs Date Time Temp Pulse Resp B/P (MAP) Pulse Ox O2 Delivery O2 Flow Rate FiO2 03/13/18 11:32 83 18 115/81 (92) 100 Room Air 03/13/18 09:13 97.8 Orders Orders Electrocardiogram (03/13/18 ) Ckmb (Isoenzyme) Profile (03/13/18 09:31) Complete Blood Count With Diff (03/13/18 09:31) Comprehensive Metabolic Panel (03/13/18 09:31) D-Dimer (03/13/18 09:31) Magnesium (Mg) (03/13/18 09:31) Prothrombin Time / Inr (Pt) (03/13/18 09:31) Act Partial Throm Time (Ptt) (03/13/18 09:31) Troponin I (03/13/18 09:31) Ecg Monitoring (03/13/18 09:31) Bilateral Bp Monitoring (03/13/18 09:31) Iv Access Insert/Monitor (03/13/18 09:31) Oximetry (03/13/18 09:31) Oxygen Administration (03/13/18 09:31) Aspirin Chew (Aspirin Chew) (03/13/18 09:45) Sodium Chloride 0.9% Flush (Ns Flush) (03/13/18 09:45) Albuterol Neb (Albuterol Neb) (03/13/18 09:45) Sodium Chlor 0.9% 1000 Ml Inj (Ns 1000 M (03/13/18 09:45) Chest, Single Ap (03/13/18 ) CKMB (03/13/18 09:30) CKMB% (03/13/18 09:30) Cta Thor Abd Aorta W Iv C W3d (03/13/18 ) Iohexol 350 Inj (Omnipaque 350 Inj) (03/13/18 11:14) Admit Order (Ed Use Only) (03/13/18 11:40) Activity Bed Rest With Brp (03/13/18 11:40) Vital Signs (Adult) Q4H (03/13/18 11:40) Cardiac Rhythm .As Directed (03/13/18 11:40) Notify Dr: Other .PRN (03/13/18 11:40) Notify DrPop Parameters (03/13/18 11:40) Diet Heart Healthy (03/13/18 Lunch) Ckmb (Isoenzyme) Profile (03/13/18 12:30) Ckmb (Isoenzyme) Profile (03/13/18 15:30) Troponin I (03/13/18 12:30) Troponin I (03/13/18 15:30) Electrocardiogram (03/13/18 12:30) Electrocardiogram (03/13/18 15:30) ^ Obtain (03/13/18 11:40) Sodium Chloride 0.9% Flush (Ns Flush) (03/13/18 11:45) Sodium Chloride 0.9% Flush (Ns Flush) (03/13/18 21:00) Acetaminophen (Tylenol) (03/13/18 11:45) Ondansetron Inj (Zofran Inj) (03/13/18 11:45) Mixing Pan Tender / Telemetry ROBERTO.Q8H (03/13/18 11:40) CKMB (03/13/18 12:00) CKMB% (03/13/18 12:00) Labs Laboratory Tests Test 03/13/18 09:30 White Blood Count 5.4 TH/MM3 Red Blood Count 3.96 MIL/MM3 Hemoglobin 12.1 GM/DL Hematocrit 36.7 % Mean Corpuscular Volume 92.6 FL Mean Corpuscular Hemoglobin 30.6 PG Mean Corpuscular Hemoglobin Concent 33.0 % Red Cell Distribution Width 13.7 % Platelet Count 297 TH/MM3 Mean Platelet Volume 8.8 FL Neutrophils (%) (Auto) 54.1 % Lymphocytes (%) (Auto) 34.3 % Monocytes (%) (Auto) 6.7 % Eosinophils (%) (Auto) 4.3 % Basophils (%) (Auto) 0.6 % Neutrophils # (Auto) 2.9 TH/MM3 Lymphocytes # (Auto) 1.9 TH/MM3 Monocytes # (Auto) 0.4 TH/MM3 Eosinophils # (Auto) 0.2 TH/MM3 Basophils # (Auto) 0.0 TH/MM3 CBC Comment DIFF FINAL Differential Comment Prothrombin Time 10.7 SEC Prothromb Time International Ratio 1.1 RATIO Activated Partial Thromboplast Time 24.4 SEC D-Dimer Quantitative (PE/DVT) 0.67 MG/L FEU Blood Urea Nitrogen 15 MG/DL Creatinine 0.70 MG/DL Random Glucose 118 MG/DL Total Protein 7.2 GM/DL Albumin 3.4 GM/DL Calcium Level 8.6 MG/DL Magnesium Level 2.2 MG/DL Alkaline Phosphatase 65 U/L Aspartate Amino Transf (AST/SGOT) 13 U/L Alanine Aminotransferase (ALT/SGPT) 24 U/L Total Bilirubin 0.5 MG/DL Sodium Level 140 MEQ/L Potassium Level 4.0 MEQ/L Chloride Level 109 MEQ/L Carbon Dioxide Level 26.6 MEQ/L Anion Gap 4 MEQ/L Estimat Glomerular Filtration Rate 106 ML/MIN Total Creatine Kinase 114 U/L Creatine Kinase MB 0.5 NG/ML Troponin I LESS THAN 0.02 NG/ML [facility] Medical Decision Making Medical Screen Exam Complete: Yes Emergency Medical Condition: Yes Differential Diagnosis AMI, angina, unstable angina, costochondritis, rib fracture, pneumonia, pneumothorax, aortic dissection, aortic aneurysm Narrative Course 53-year-old female with a history of diabetes mellitus presents emergency department for evaluation of chest pain that she woke up with about 6:00 this morning. Patient says that the pain is located midsternal and radiates to the back. Says the pain is worse with deep deep breaths, described as achy, 8/10 pain. She says that she coughed up one episode of streaked mucus so she decided to come in for evaluation. She admits to one episode of nausea but denies any significant nausea or vomiting. Says that for approximately 1 week she has had cough cold-like symptoms and has been evaluated by urgent care day says that she was given amoxicillin, prednisone and tramadol for lower rib pain, cough and congestion. She admits to a history of similar chest discomfort associated with cold-like symptoms. Patient says that she was evaluated at [facility] for a similar episode of chest pain 2-3 years ago and received a stress test which was normal. Patient previously followed Dr. Bustos but this is been 2-3 years. She denies history of hypertension, hyperlipidemia, or family history of cardiac disease. Denies recent travel, surgeries, history of DVT/PE, cancer. She denies any other medical issues. She does not take aspirin on a daily basis. Vital signs are stable. 162mg aspirin administered. We will avoid nitroglycerin for chest pain as her blood pressure is borderline and she does have symptoms concerning for aneurysm versus dissection. Duo nebs administered as she does have upper respiratory type of symptoms Aspirin and albuterol neb which seem to have decreased her pain. EKG shows sinus rhythm at a rate without STEMI changes CBC & BMP Diagram 03/13/18 09:30 Total Protein 7.2, Albumin 3.4, Calcium Level 8.6, Magnesium Level 2.2, Alkaline Phosphatase 65, Aspartate Amino Transf (AST/SGOT) 13 L, Alanine Aminotransferase (ALT/SGPT) 24, Total Bilirubin 0.5 Cardiac enzymes negative. D-dimer elevated. CTA ordered to rule out dissection and negative for acute process. 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 This was according to her primary care physician with [facility]. It appears that there is no supporting documentation however, it appears that patient has had vaccinations for this does not appear to be a problem at this point. Patient apparently had a stress test 1 year ago here at [facility] which was normal. Based off of history and physical and comorbidity of diabetes, will admit patient to chest pain center for observation. I spoke with Dr. cAosta who accepted this admission. Diagnosis Primary Impression: Chest pain Qualified Codes: R07.1 - Chest pain on breathing Admitting Information Admitting Physician Requests: Observation Condition: Stable Ce Jacobs PA March 13, 2018 09:37
[2018-03-13 09:44] LABS: AUTOMATED NEUTROPHIL # 2.9 TH/MM3 (1.8-7.7); BASOPHIL % 0.6 % (0.0-2.0); EOSINOPHIL # 0.2 TH/MM3 (0-0.4); EOSINOPHIL % 4.3 % (0.0-4.0); HEMATOCRIT 36.7 % (35.0-46.0); HEMOGLOBIN 12.1 GM/DL (11.6-15.3); LYMPH % 34.3 % (9.0-44.0); LYMPHOCYTE # 1.9 TH/MM3 (1.0-4.8); MEAN CELL VOLUME 92.6 FL (80.0-100.0); MEAN CORPUSCULAR HEMOGLOBIN 30.6 PG (27.0-34.0); MEAN PLATELET VOLUME 8.8 FL (7.0-11.0); MONO % 6.7 % (0.0-8.0); MONOCYTE # 0.4 TH/MM3 (0-0.9); NEUT % 54.1 % (16.0-70.0); PLATELET COUNT 297 TH/MM3 (150-450); RED BLOOD COUNT 3.96 MIL/MM3 (4.00-5.30); RED CELL DISTRIBUTION WIDTH 13.7 % (11.6-17.2); WHITE BLOOD COUNT 5.4 TH/MM3 (4.0-11.0)
[2018-03-13] MEDS ORDERED: ASPIRIN 81 MG CHEW TAB PO ONE (09:45)
[2018-03-13] MEDS ORDERED: SODIUM CHLORIDE 0.9% FLUSH 10 ML FLUSH IVF PRN (09:45)
[2018-03-13] MEDS ORDERED: RESP: ALBUTEROL 2.5 MG/3 ML NEB (SCH) INH ONE (09:45)
[2018-03-13] MEDS ORDERED: SODIUM CHLOR 0.9% 1000 ML INJ 1,000 ML IV ONE (09:45)
[2018-03-13 09:57] LABS: CHLORIDE 109 MEQ/L (98-107); SODIUM (NA) 140 MEQ/L (136-145)
[2018-03-13 10:00] LABS: CALCIUM 8.6 MG/DL (8.5-10.1)
[2018-03-13 10:01] LABS: ALBUMIN 3.4 GM/DL (3.4-5.0); BICARBONATE 26.6 MEQ/L (21.0-32.0); GLUCOSE,RANDOM 118 MG/DL (74-106); MAGNESIUM 2.2 MG/DL (1.5-2.5)
[2018-03-13 10:03] LABS: INTERNATIONAL NORMALIZED RATIO 1.1 RATIO; PROTHROMBIN TIME - PATIENT 10.7 SEC (9.8-11.6)
[2018-03-13 10:04] LABS: ALT (GPT) 24 U/L (10-53); GLOMERULAR FILTRATION RATE 106 ML/MIN (>89)
[2018-03-13 10:05] LABS: TOTAL BILIRUBIN ADULT 0.5 MG/DL (0.2-1.0); TOTAL PROTEIN 7.2 GM/DL (6.4-8.2)
[2018-03-13 10:07] LABS: ALKALINE PHOSPHATASE 65 U/L (45-117)
[2018-03-13 10:09] LABS: AST (GOT) 13 U/L (15-37); BLOOD UREA NITROGEN 15 MG/DL (7-18); D-DIMER 0.67 MG/L FEU (0.00-0.50); TROPONIN I LESS THAN 0.02 NG/ML (0.02-0.05)
--- NOTE | 2018-03-13 10:13 | PD ---
Physical Exam Date Seen by Provider: March 13, 2018 Data Data Last Documented VS Vital Signs Date Time Temp Pulse Resp B/P (MAP) Pulse Ox O2 Delivery O2 Flow Rate FiO2 03/13/18 10:05 70 18 132/62 (85) 114/73 (87) 03/13/18 09:40 99 Room Air 03/13/18 09:13 97.8 Orders Orders Electrocardiogram (03/13/18 ) Electrocardiogram (03/13/18 09:31) Ckmb (Isoenzyme) Profile (03/13/18 09:31) Complete Blood Count With Diff (03/13/18 09:31) Comprehensive Metabolic Panel (03/13/18 09:31) D-Dimer (03/13/18:31) Magnesium (Mg) (03/13/18 09:31) Prothrombin Time / Inr (Pt) (03/13/18 09:31) Act Partial Throm Time (Ptt) (03/13/18 09:31) Troponin I (03/13/18 09:31) Ecg Monitoring (03/13/18 09:31) Bilateral Bp Monitoring (03/13/18 09:31) Iv Access Insert/Monitor (03/13/18 09:31) Oximetry (03/13/18 09:31) Oxygen Administration (03/13/18 09:31) Aspirin Chew (Aspirin Chew) (03/13/18 09:45) Sodium Chloride 0.9% Flush (Ns Flush) (03/13/18 09:45) Albuterol Neb (Albuterol Neb) (03/13/18 09:45) Sodium Chlor 0.9% 1000 Ml Inj (Ns 1000 M (03/13/18 09:45) Chest, Single Ap (03/13/18 ) CKMB (03/13/18 09:30) CKMB% (03/13/18 09:30) Cta Thor Abd Aorta W Iv C W3d (03/13/18 ) Labs Laboratory Tests Test 03/13/18 09:30 White Blood Count 5.4 TH/MM3 Red Blood Count 3.96 MIL/MM3 Hemoglobin 12.1 GM/DL Hematocrit 36.7 % Mean Corpuscular Volume 92.6 FL Mean Corpuscular Hemoglobin 30.6 PG Mean Corpuscular Hemoglobin Concent 33.0 % Red Cell Distribution Width 13.7 % Platelet Count 297 TH/MM3 Mean Platelet Volume 8.8 FL Neutrophils (%) (Auto) 54.1 % Lymphocytes (%) (Auto) 34.3 % Monocytes (%) (Auto) 6.7 % Eosinophils (%) (Auto) 4.3 % Basophils (%) (Auto) 0.6 % Neutrophils # (Auto) 2.9 TH/MM3 Lymphocytes # (Auto) 1.9 TH/MM3 Monocytes # (Auto) 0.4 TH/MM3 Eosinophils # (Auto) 0.2 TH/MM3 Basophils # (Auto) 0.0 TH/MM3 CBC Comment DIFF FINAL Differential Comment Prothrombin Time 10.7 SEC Prothromb Time International Ratio 1.1 RATIO Activated Partial Thromboplast Time 24.4 SEC D-Dimer Quantitative (PE/DVT) 0.67 MG/L FEU Blood Urea Nitrogen 15 MG/DL Creatinine 0.70 MG/DL Random Glucose 118 MG/DL Total Protein 7.2 GM/DL Albumin 3.4 GM/DL Calcium Level 8.6 MG/DL Magnesium Level 2.2 MG/DL Alkaline Phosphatase 65 U/L Aspartate Amino Transf (AST/SGOT) 13 U/L Alanine Aminotransferase (ALT/SGPT) 24 U/L Total Bilirubin 0.5 MG/DL Sodium Level 140 MEQ/L Potassium Level 4.0 MEQ/L Chloride Level 109 MEQ/L Carbon Dioxide Level 26.6 MEQ/L Anion Gap 4 MEQ/L Estimat Glomerular Filtration Rate 106 ML/MIN Total Creatine Kinase 114 U/L Creatine Kinase MB 0.5 NG/ML Troponin I LESS THAN 0.02 NG/ML [facility] Medical Record Reviewed: Yes Supervised Visit with MARY JO: Yes Interpretation(s) EKG at 0914: NSR at 75bpm, qt/qtc: 362/390, no acute st or t wave changes Vital Signs Date Time Temp Pulse Resp B/P (MAP) Pulse Ox O2 Delivery O2 Flow Rate FiO2 03/13/18 10:05 70 18 132/62 (85) 114/73 (87) 03/13/18 09:40 99 Room Air 03/13/18 09:40 99 Room Air 03/13/18 09:19 78 18 99 Room Air 03/13/18 09:13 97.8 80 18 107/64 (78) 99 Differential Diagnosis URI, aortic dissection, bronchitis, PE, arrhythmia, ACS, pneumothorax, pneumonia Narrative Course I, Dr. Gagnon, have reviewed the advance practice practitioner's Ce's documentation and am in agreement, met with the patient face to face, made the diagnosis, and the medical decision making was done by me. *My assessment and Findings: Patient is a 53-year-old female with history of diabetes, presents the emergency room for evaluation of chest pain. Patient reports the chest pain is located in the mid sternum, reports that it radiates to her back, reports that pain is worse with deep inspiration, nothing makes it better. Patient reports that she is currently being treated for URI with amoxicillin and steroids, patient reports that she has had a productive cough, patient reports that she noticed some blood-tinged sputum today. Patient reports that she has had chest pain in the past, has had a workup including a stress test a few years ago, reports that she did not need to follow-up with a glass sander belt since then. Patient with no family history of early MIs or cardiac disease, reports only history of diabetes. Patient denies any recent travels or trips, patient reports that chest pain symptoms are pleuritic in nature. A cardiac workup was initiated, d-dimer is ordered as patient does have pleuritic chest pain radiating to her back. Laboratory Tests Test 03/13/18 09:30 White Blood Count 5.4 TH/MM3 (4.0-11.0) Red Blood Count 3.96 MIL/MM3 (4.00-5.30) Hemoglobin 12.1 GM/DL (11.6-15.3) Hematocrit 36.7 % (35.0-46.0) Mean Corpuscular Volume 92.6 FL (80.0-100.0) Mean Corpuscular Hemoglobin 30.6 PG (27.0-34.0) Mean Corpuscular Hemoglobin Concent 33.0 % (32.0-36.0) Red Cell Distribution Width 13.7 % (11.6-17.2) Platelet Count 297 TH/MM3 (150-450) Mean Platelet Volume 8.8 FL (7.0-11.0) Neutrophils (%) (Auto) 54.1 % (16.0-70.0) Lymphocytes (%) (Auto) 34.3 % (9.0-44.0) Monocytes (%) (Auto) 6.7 % (0.0-8.0) Eosinophils (%) (Auto) 4.3 % (0.0-4.0) Basophils (%) (Auto) 0.6 % (0.0-2.0) Neutrophils # (Auto) 2.9 TH/MM3 (1.8-7.7) Lymphocytes # (Auto) 1.9 TH/MM3 (1.0-4.8) Monocytes # (Auto) 0.4 TH/MM3 (0-0.9) Eosinophils # (Auto) 0.2 TH/MM3 (0-0.4) Basophils # (Auto) 0.0 TH/MM3 (0-0.2) CBC Comment DIFF FINAL Differential Comment Prothrombin Time 10.7 SEC (9.8-11.6) Prothromb Time International Ratio 1.1 RATIO Activated Partial Thromboplast Time 24.4 SEC (24.3-30.1) D-Dimer Quantitative (PE/DVT) 0.67 MG/L FEU (0.00-0.50) Blood Urea Nitrogen 15 MG/DL (7-18) Creatinine 0.70 MG/DL (0.50-1.00) Random Glucose 118 MG/DL (74-106) Total Protein 7.2 GM/DL (6.4-8.2) Albumin 3.4 GM/DL (3.4-5.0) Calcium Level 8.6 MG/DL (8.5-10.1) Magnesium Level 2.2 MG/DL (1.5-2.5) Alkaline Phosphatase 65 U/L (45-117) Aspartate Amino Transf (AST/SGOT) 13 U/L (15-37) Alanine Aminotransferase (ALT/SGPT) 24 U/L (10-53) Total Bilirubin 0.5 MG/DL (0.2-1.0) Sodium Level 140 MEQ/L (136-145) Potassium Level 4.0 MEQ/L (3.5-5.1) Chloride Level 109 MEQ/L (98-107) Carbon Dioxide Level 26.6 MEQ/L (21.0-32.0) Anion Gap 4 MEQ/L (5-15) Estimat Glomerular Filtration Rate 106 ML/MIN (>89) Total Creatine Kinase 114 U/L (26-192) Troponin I LESS THAN 0.02 NG/ML D-dimer was elevated at 0.67, CTA was ordered to rule out dissection as patient has chest pain rating to her back. Condition: Stable Jessica Gagnon DO March 13, 2018 10:13
--- NOTE | 2018-03-13 10:27 | RADRPT ---
EXAM DATE: 03/13/2018 10:23 AM EDT AGE/SEX: 53 years / Female INDICATIONS: Chest pain, short of breath. CLINICAL DATA: This is the patient's initial encounter. Patient reports that signs and symptoms have been present for 2 days and indicates a pain score of 7/10. MEDICAL/SURGICAL HISTORY: Diabetes mellitus type II. Gastroesophageal reflux disease. Cholecys tectomy. Tubal ligation. COMPARISON: [facility], CHEST SINGLE AP, 08/20/2017. . FINDINGS: A single AP view of the chest demonstrates the lungs to be symmetrically aerated without evidence of mass, infiltrate or effusion. The cardiomediastinal contours are unremarkable. Osseous structures a re intact. CONCLUSION: Stable chest without evidence of acute cardiopulmonary process. Electronically signed by: Dakota Adair MD 03/13/2018 10:25 AM EDT
[2018-03-13] MEDS ORDERED: IOHEXOL 350 MG/ML 10 ML VIAL (for RAD DIAG) IVCONTRAST ONE (11:14)
--- NOTE | 2018-03-13 11:34 | RADRPT ---
EXAM DATE: 03/13/2018 11:13 AM EDT AGE/SEX: 53 years / Female INDICATIONS: Mid sternum chest pain radiating to back. Hemoptysis. CLINICAL DATA: This is the patient's initial encounter. Patient reports that signs and symptoms have been present for 1 week and indicates a pain score of 7/10. MEDICAL/SURGICAL HISTORY: Diabetes mellitus type II. Gastroesophageal reflux disease. Cholecystect humberto. Tubal ligation. RADIATION DOSE: 22.56 CTDI (mGy) COMPARISON: No prior [place] exams available for comparison. TECHNIQUE: Volumetric scanning was performed using a multi-row detector CT scanner during bolus infu lolita of 85 ml Omnipaque 350 (iohexol) nonionic water-soluble contrast as a single exam dose. The da ta was post processed with a variety of visualization algorithms including full volume maximum intens ity projection, multi-planar sliding thin slab reformation, curved planar reformation, and surface re ndering techniques. Using automated exposure control and adjustment of the mA and/or kV according to patient size, radiation dose was kept as low as reasonably achievable to obtain optimal diagnostic q uality images. FINDINGS: LUNGS: There is no consolidation or pneumothorax. No concerning pulmonary nodule is visualized. No pleural fluid is present. MEDIASTINUM: No abnormally enlarged lymph nodes by CT criteria. No axillary or hilar abnormalities a re identified. ABDOMEN: The liver and spleen are free of focal defects. There is fatty infiltration throughout the liver. Status post cholecystectomy. The pancreas demonstrate no abnormality. The adrenal glands are n ormal. The kidneys demonstrate no evidence of solid renal mass or hydronephrosis. No free fluid or ab dominal masses are identified. No para-aortic adenopathy is seen. PELVIS: No evidence of free fluid or pelvic mass. No abnormally enlarged inguinal or retroperitoneal lymph nodes are present. The bladder is unremarkable. THORACIC AORTA: The thoracic aortic root is normal with normal branching of the great vessels. Ther e is no evidence of aneurysm or dissection. ABDOMINAL AORTA: The aorta is normal in caliber without aneurysm or dissection. The renal arteries are patent bilaterally. The proximal celiac and superior mesenteric arteries are patent and normal i n diameter. PELVIC VESSELS: The internal iliac and external iliac vessels are patent without aneurysm or stenosi s. CONCLUSION: 1. Unremarkable examination for patient's age. Electronically signed by: Orion Leal MD 03/13/2018 11:33 AM EDT
[2018-03-13] MEDS ORDERED: SODIUM CHLORIDE 0.9% FLUSH 10 ML FLUSH IV FLUSH PRN ×2 (11:45→12:00)
[2018-03-13] MEDS ORDERED: ACETAMINOPHEN 500 MG CPLT PO PRN (11:45)
[2018-03-13] MEDS ORDERED: ONDANSETRON HCL 4 MG/2 ML VIAL IV PUSH PRN (11:45)
[2018-03-13 12:47] LABS: TROPONIN I LESS THAN 0.02 NG/ML (0.02-0.05)
--- NOTE | 2018-03-13 13:28 | HHI.HP ---
[facility] Physician Driss De Leon MD Admission Diagnosis chest pain, r/o ACS Diagnoses: (1) Chest pain Diagnosis: Principal Chief Complaint: Chest pain Travel History International Travel<30 Days: No Contact w/Intl Traveler <30 Da: No Traveled to Known Affected Are: No History of Present Illness 53-year-old female with known history of diabetes who presented to hospital because of chest discomfort, hemoptysis. Patient indicates that she woke up this morning approximately 6 AM with chest discomfort, she noticed it when she rolled over onto her side that the pain was located in the middle part of her chest and radiating to her back, indicates that the pain was 8/10 on a pain scale, patient states that she went on her normal daily activities, pain was worsened whenever she took a deep breath. Patient did go to work and had an episode of nausea and she went into vomit but she has only had dry heaves. Patient cough some and then she was able to vomit some mucus which she noticed a small strand of bright red blood. Because of that reason she came to the emergency department for evaluation. Patient has had workup done which was unremarkable. Patient indicates that she is still experiencing the pain. Patient states that she has been undergoing treatment for upper respiratory infection and just finished a Z-Jonathan 3 days ago. She is still having a lot of head congestion and cough. Patient states that whenever she gets this type of infection she usually does experience chest discomfort. Patient was here almost exactly 1 year ago for similar symptoms that she underwent cardiac evaluation with chemical stress test which was negative. ER physician recommended the patient be observed in the chest pain center for further evaluation. Patient denies any lightheadedness, dizziness, diaphoresis. Review of Systems Respiratory: COMPLAINS OF: Cough, Hemoptysis Cardiovascular: COMPLAINS OF: Chest pain Gastrointestinal: COMPLAINS OF: Nausea, Vomiting Except as stated in HPI: all other systems reviewed are Neg Past Family Social History Past Medical History Diabetes Gastroesophageal reflux Past Surgical History Tubal ligation Cholecystectomy Reported Medications Reported Meds & Active Scripts Active Flonase Nasal [place] (Fluticasone Nasal [place]) 50 Mcg/Act [place] 100 Mcg EACH NARE BID Reported Metformin (Metformin HCl) 500 Mg Tab 500 Mg PO BIDPC Vitamin D3 (Cholecalciferol) 3,000 Unit Tab 4,000 Units PO DAILY Allergies: Coded Allergies: naproxen (Verified Allergy, Intermediate, HIVES, 10/17/17) Family History Reviewed and unremarkable for any heart disease, diabetes, cancer, seizures, stroke Social History Patient denies any tobacco, alcohol or illicit drugs Physical Exam Vital Signs Vital Signs Date Time Temp Pulse Resp B/P (MAP) Pulse Ox O2 Delivery O2 Flow Rate FiO2 03/13/18 12:20 71 20 119/77 (91) 100 03/13/18 11:32 83 18 115/81 (92) 100 Room Air 03/13/18 10:05 70 18 132/62 (85) 114/73 (87) 03/13/18 09:40 99 Room Air 03/13/18 09:40 99 Room Air 03/13/18 09:19 78 18 99 Room Air 03/13/18 09:13 97.8 80 18 107/64 (78) 99 Physical Exam GENERAL: Well-developed, well-nourished, in no acute distress. alert and orientated HEENT: Head is normocephalic without any lesions or masses noted. Facial features are symmetric. Eyes: Pupils equal round reactive to light. Extraocular muscles are intact. Conjunctivae were clear. Oropharyngeal: Pharynx without any erythema edema. Tongue is midline without deviation. Buccal mucosa is moist without any masses or lesions NECK: Supple without any masses. Trachea midline no deviation. No JVD, no bruits are appreciated CARDIAC: Regular rhythm, regular rate. S1/S2 are heard. No murmurs gallops or rubs. Reproducible tenderness noted over the mid sternum LUNGS: Clear to auscultation bilaterally. No wheeze, rhonchi or rales. No use of accessory muscles on inspiration or expiration. ABDOMEN: Soft, nontender. Nondistended. Bowel sounds heard in all 4 quadrants. No organomegaly or masses. Negative rebound, negative guarding EXTREMITIES: No edema, pulses are equal bilaterally. No cyanosis or clubbing NEUROLOGY: Mood and affect appear appropriate. Cranial nerves II through XII grossly intact. Muscle strength 5/5 in upper and lower extremities bilaterally. Deep tendon reflexes are 2+ in upper and lower extremities bilaterally. Laboratory Laboratory Tests Test 03/13/18 09:30 5/23/18 12:00 White Blood Count 5.4 Red Blood Count 3.96 Hemoglobin 12.1 Hematocrit 36.7 Mean Corpuscular Volume 92.6 Mean Corpuscular Hemoglobin 30.6 Mean Corpuscular Hemoglobin Concent 33.0 Red Cell Distribution Width 13.7 Platelet Count 297 Mean Platelet Volume 8.8 Neutrophils (%) (Auto) 54.1 Lymphocytes (%) (Auto) 34.3 Monocytes (%) (Auto) 6.7 Eosinophils (%) (Auto) 4.3 Basophils (%) (Auto) 0.6 Neutrophils # (Auto) 2.9 Lymphocytes # (Auto) 1.9 Monocytes # (Auto) 0.4 Eosinophils # (Auto) 0.2 Basophils # (Auto) 0.0 CBC Comment DIFF FINAL Differential Comment Prothrombin Time 10.7 Prothromb Time International Ratio 1.1 Activated Partial Thromboplast Time 24.4 D-Dimer Quantitative (PE/DVT) 0.67 Blood Urea Nitrogen 15 Creatinine 0.70 Random Glucose 118 Total Protein 7.2 Albumin 3.4 Calcium Level 8.6 Magnesium Level 2.2 Alkaline Phosphatase 65 Aspartate Amino Transf (AST/SGOT) 13 Alanine Aminotransferase (ALT/SGPT) 24 Total Bilirubin 0.5 Sodium Level 140 Potassium Level 4.0 Chloride Level 109 Carbon Dioxide Level 26.6 Anion Gap 4 Estimat Glomerular Filtration Rate 106 Total Creatine Kinase 114 147 Creatine Kinase MB 0.5 0.6 Troponin I LESS THAN 0.02 LESS THAN 0.02 Result Diagram: 03/13/18 0930 03/13/18 0930 Imaging Last Impressions Chest X-Ray 03/13/18 0000 Signed Impressions: CONCLUSION: Aorta CTA 03/13/18 0000 Signed Impressions: CONCLUSION: Caprini VTE Risk Assessment Caprini VTE Risk Assessment: No/Low Risk (score <= 1) Caprini Risk Assessment Model Point Value = 1 Point Value = 2 Point Value = 3 Point Value = 5 Age 41-60 Minor surgery BMI > 25 kg/m2 Swollen legs Varicose veins or History of unexplained or recurrent spontaneous Oral contraceptives or hormone replacement Sepsis (< 1 month) Serious lung disease, including pneumonia (< 1 month) Abnormal pulmonary function Acute myocardial infarction Congestive heart failure (< 1 month) History of inflammatory bowel disease Medical patient at bed rest Age 61-74 Arthroscopic surgery Major open surgery (> 45 min) Laparoscopic surgery (> 45 min) Malignancy Confined to bed (> 72 hours) Immobilizing plaster cast Central venous access Age >= 75 History of VTE Family history of VTE Factor V Leiden Prothrombin [id number] Lupus anticoagulant Anticardiolipin antibodies Elevated serum homocysteine Heparin-induced thrombocytopenia Other congenital or acquired thrombophilia Stroke (< 1 month) Elective arthroplasty Hip, pelvis, or leg fracture Acute spinal cord injury (< 1 month) Prophylaxis Regimen Total Risk Factor Score Risk Level Prophylaxis Regimen 0-1 Low Early ambulation 2 Moderate Order ONE of the following: *Sequential Compression Device (SCD) *Heparin 5000 units SQ BID 3-4 Higher Order ONE of the following medications: *Heparin 5000 units SQ TID *Enoxaparin/Lovenox 40 mg SQ daily (WT < 150 kg, CrCl > 30 mL/min) *Enoxaparin/Lovenox 30 mg SQ daily (WT < 150 kg, CrCl > 10-29 mL/min) *Enoxaparin/Lovenox 30 mg SQ BID (WT < 150 kg, CrCl > 30 mL/min) AND/OR *Sequential Compression Device (SCD) 5 or more Highest Order ONE of the following medications: *Heparin 5000 units SQ TID (Preferred with Epidurals) *Enoxaparin/Lovenox 40 mg SQ daily (WT < 150 kg, CrCl > 30 mL/min) *Enoxaparin/Lovenox 30 mg SQ daily (WT < 150 kg, CrCl > 10-29 mL/min) *Enoxaparin/Lovenox 30 mg SQ BID (WT < 150 kg, CrCl > 30 mL/min) AND *Sequential Compression Device (SCD) Assessment and Plan Assessment and Plan Chest pain Patient with increased risk factors include age, diabetes Patient will be ruled out for acute coronary event with serial cardiac enzymes , serial EKGs If patient ruled out for acute coronary event myocardial perfusion study was performed to rule out any underlying ischemia Patient with some mild hemoptysis, elevated d-dimer, chest pain. Will pursue pulmonary angiogram to rule out any pulmonary emboli Continue aspirin, nitroglycerin as needed Diabetes Hold metformin Accu-Cheks and sliding scale insulin DVT prevention Sequential compression devices Sol[facility] Merino March 13, 2018 13:27
[2018-03-13] MEDS ORDERED: NITROGLYCERIN 0.4 MG SL 25 TABS/BTL SL PRN (13:30)
[2018-03-13] MEDS ORDERED: GLUCAGON 1 MG/ML VIAL OTHER PRN (13:45)
[2018-03-13] MEDS ORDERED: DEXTROSE 50% IN WATER 50 ML VIAL(D50) IV PUSH PRN (13:45)
[2018-03-13] MEDS: SODIUM CHLOR 0.9% 1000 ML INJ 1,000 ML IV SCH (16:15)
[2018-03-13] MEDS: INSULIN ASPART SUPPLEMENTAL SCALE SQ SCH ×2 (16:27→21:00)
[2018-03-13 17:29] LABS: TROPONIN I LESS THAN 0.02 NG/ML (0.02-0.05)
[2018-03-13] MEDS: SODIUM CHLORIDE 0.9% FLUSH 10 ML FLUSH IV FLUSH SCH (21:00)
[2018-03-13] MEDS ORDERED: SODIUM CHLORIDE 0.9% FLUSH 10 ML FLUSH IV FLUSH SCH (21:00)
[2018-03-14 00:04] VITALS: BP 126/76; PULSE 67; RESP 20; TEMP 96.4; O2SAT 100
[2018-03-14 04:07] VITALS: BP 128/70; PULSE 70; RESP 20; TEMP 96; O2SAT 99
[2018-03-14] MEDS: SODIUM CHLOR 0.9% 1000 ML INJ 1,000 ML IV SCH (04:50)
[2018-03-14 08:00] VITALS: PULSE 65
[2018-03-14 08:32] VITALS: BP 130/73; PULSE 63; RESP 18; TEMP 96.2; O2SAT 100
[2018-03-14] MEDS: INSULIN ASPART SUPPLEMENTAL SCALE SQ SCH ×2 (08:45→11:45)
[2018-03-14] MEDS ORDERED: ASPIRIN 325 MG TAB PO SCH (09:00)
[2018-03-14] MEDS: SODIUM CHLORIDE 0.9% FLUSH 10 ML FLUSH IV FLUSH SCH ×4 (09:10→09:17)
[2018-03-14] MEDS ORDERED: REGADENOSON INJ 0.4 MG/5 ML SYR IV ONE (10:09)
--- NOTE | 2018-03-14 11:38 | RADRPT ---
EXAM DATE: 03/14/2018 11:23 AM EDT AGE/SEX: 53 years / Female INDICATIONS:Angina. . Midchest pain. CLINICAL DATA: This is the patient's initial encounter. Patient reports that signs and symptoms have been present for 1 day and indicates a pain score of 8/10. MEDICAL/SURGICAL HISTORY: Hypertension. Cholecystectomy. Tubal ligation. COMPARISON: [facility], CTA THORACIC ABDOMINAL AORTA W 3D RECON, 03/13/2018. . DOSE: 35 mCi Tc 99m Myoview at stress 11 mCi [id number] at rest 0.4 mg Lexiscan STRESS SYMPTOMS: Tired feeling. EJECTION FRACTION: 64 % TECHNIQUE: The patient underwent pharmacologic stress with infusion of prescribed dose. Continuous ECG tracing was monitored during stress. Gated SPECT imaging was performed after stress and conventi onal SPECT imaging was performed at rest. The examination was performed on a SPECT /CT scanner, both attenuation and non-corrected datasets were reviewed. FINDINGS: Distribution: The maximum perfused segment at stress is in the anteroseptal wall. Perfusion Study: Focal apparent decreased perfusion in the mid to basilar anterior wall likely refl ects breast attenuation artifact. Gated Study: There are intact wall motion and wall thickening without hypokinetic or dyskinetic segm ents. The ejection fraction is calculated at 64%. RISK CATEGORY: Low (<1% Annual Motality Rate) CONCLUSION: 1. Focal apparent decreased perfusion in the mid to basilar anterior wall, likely breast artifact. 2. Otherwise, no evidence for acute ischemia. 3. Intact wall motion with EF of 64%. Electronically signed by: Edgar Greenwood MD 03/14/2018 11:36 AM EDT
--- NOTE | 2018-03-14 11:51 | HHI.DCPOC ---
Discharge Care Plan Diagnosis: (1) Chest pain Goals to Promote Your Health * To prevent worsening of your condition and complications * To maintain your health at the optimal level Directions to Meet Your Goals Take your medications as prescribed Follow your dietary instruction Follow activity as directed Keep your appointments as scheduled Take your immunizations and boosters as scheduled If your symptoms worsen call your PCP, if no PCP go to Urgent Care Center or Emergency Room Smoking is Dangerous to Your Health. Avoid second hand smoke Call the 24-hour hour crisis hotline for domestic abuse at [facility] March 14, 2018 11:51
--- NOTE | 2018-03-14 11:57 | HHI.PR ---
Subjective Remarks Follow-up atypical chest pain March 14, 2018-patient seen and examined, she had a negative Lexiscan stress test. Patient currently is free of chest pain and looking for discharge home. She denies any shortness of breath Objective Vitals Vital Signs Date Time Temp Pulse Resp B/P (MAP) Pulse Ox O2 Delivery O2 Flow Rate FiO2 03/14/18 08:32 96.2 63 18 130/73 (92) 100 03/14/18 04:07 96.0 70 20 128/70 (89) 99 03/14/18 00:04 96.4 67 20 126/76 (93) 100 03/13/18 20:22 96.4 67 20 126/76 (93) 100 03/13/18 20:00 72 03/13/18 19:37 97 21 03/13/18 16:00 96.6 68 20 132/68 (89) 100 03/13/18 15:16 96.8 68 20 128/66 (86) 100 03/13/18 13:51 96.2 61 20 125/67 (86) 100 03/13/18 13:21 71 122/80 (94) 99 03/13/18 12:20 71 20 119/77 (91) 100 03/13/18 12:05 100 21 I/O 03/13/18 03/13/18 03/13/18 03/14/18 03/14/18 03/14/18 07:00 15:00 23:00 07:00 15:00 23:00 Intake Total 1000 ml 480 ml Balance 1000 ml 480 ml Intake Oral 480 ml IV Total 1000 ml # Voids 4 1 Result Diagram: 03/13/1830 03/13/18 0930 Imaging Last Impressions Myocardial Perfusion Scan Nuc Med 03/14/18 0600 Signed Impressions: CONCLUSION: 1. Focal apparent decreased perfusion in the mid to basilar anterior wall, lik adebayo breast artifact. 2. Otherwise, no evidence for acute ischemia. 3. Intact wall motion with EF of 64%. Chest X-Ray 03/13/18 0000 Signed Impressions: CONCLUSION: Stable chest without evidence of acute cardiopulmonary process. Aorta CTA 03/13/18 0000 Signed Impressions: CONCLUSION: 1. Unremarkable examination for patient's age. Objective Remarks GENERAL: NAD SKIN: Warm and dry. HEAD: Normocephalic. EYES: No scleral icterus. No injection or drainage. NECK: Supple, trachea midline. No JVD or lymphadenopathy. CARDIOVASCULAR: Regular rate and rhythm without murmurs, gallops, or rubs. RESPIRATORY: Breath sounds equal bilaterally. No accessory muscle use. GASTROINTESTINAL: Abdomen soft, non-tender, nondistended. MUSCULOSKELETAL: No cyanosis, or edema. BACK: Nontender without obvious deformity. No CVA tenderness. A/P Problem List: (1) Chest pain ICD Code: R07.9 - Chest pain Status: Acute Assessment and Plan 53-year-old female with Chest pain -Nuclear stress test negative Patient will be ruled out for acute coronary event with serial cardiac enzymes , serial EKGs -Aorta CTA negative Continue aspirin, nitroglycerin as needed -Patient to follow with PCP upon discharge Diabetes Resume metformin 24 hours Accu-Cheks and sliding scale insulin DVT prevention Sequential compression devices Discharge Planning Discharge patient to home Condition on discharge: Improved Regular Diet as tolerated Ad Beryl activity Rx written:see EMR Follow-up with primary care physician in 1 week Problem Qualifiers (1) Chest pain: Qualified Codes: R07.1 - Chest pain on breathing Ankit Richards MD March 14, 2018 11:57
[2018-03-14] MEDS ORDERED: IOHEXOL 350 MG/ML 10 ML VIAL (for RAD DIAG) IVCONTRAST ONE (12:26)
--- NOTE | 2018-03-14 12:44 | RADRPT ---
EXAM DATE: 03/14/2018 12:25 PM EDT AGE/SEX: 53 years / Female INDICATIONS: Chest pain. Hemoptysis. Elevated D-dimer. CLINICAL DATA: This is the patient's initial encounter. Patient reports that signs and symptoms have been present for 2 days and indicates a pain score of 4/10. MEDICAL/SURGICAL HISTORY: Gastroesophageal reflux disease. Diabetes mellitus type II. Tubal ligati on. Cholecystectomy. RADIATION DOSE: 20.95 CTDI (mGy) COMPARISON: No prior [place] exams available for comparison. TECHNIQUE: Volumetric scanning was performed using a multi-row detector CT scanner during bolus infu lolita of 80 ml Omnipaque 350 (iohexol) nonionic water-soluble contrast as a single exam dose. The lit a was post processed with a variety of visualization algorithms including full volume maximum intensi ty projection and sliding thin slab reformation. Using automated exposure control and adjustment of the mA and/or kV according to patient size, radiation dose was kept as low as reasonably achievable t o obtain optimal diagnostic quality images. FINDINGS: Pulmonary Arteries: No filling defects are seen in the pulmonary arteries through the segmental vess els. The main pulmonary artery is normal in diameter. Lung: No focal parenchymal abnormalities. Pleura: No effusion, significant pleural thickening or pneumothorax. Mediastinum: Heart is unremarkable without pericardial effusion. No evidence of mediastinal or hilar adenopathy. Osseous Structures: No abnormal focal lytic or blastic bony lesions. Other: Visualized upper abdomen is unremarkable. CONCLUSION: 1. No CT evidence for pulmonary artery embolism. 2. Unremarkable chest CT exam. Electronically signed by: Edgar Greenwood MD 03/14/2018 12:43 PM EDT
--- NOTE | 2018-03-14 16:02 | TR ---
Date Performed: 03/14/2018 Time Performed: 10:32:16 DOCTOR: Raad Cobos DRUG LIST: CLINICAL HISTORY: REASON FOR TEST: REASON FOR ENDING: OBSERVATION: CONCLUSION: Lexiscan stress test was performed under standard four minute protocol. Radionuclide was injected one minute prior to ending the test. No electrocardiographic abormalities were present to suggest ischemia. Nuclear imaging and interpretation are pending. COMMENTS:
--- NOTE | 2018-03-15 08:25 | EKG ---
Date Performed: 03/13/2018 Time Performed: 16:07:26 PTAGE: 53 years EKG: Sinus rhythm NORMAL ECG PREVIOUS TRACING : 03/13/2018 11.54 DOCTOR: Romie Vidales Interpretating Date/Time 03/15/2018 08:17:20
--- NOTE | 2018-03-15 08:33 | EKG ---
Date Performed: 03/13/2018 Time Performed: 11:54:26 PTAGE: 53 years EKG: Sinus rhythm NORMAL ECG PREVIOUS TRACING : 08/20/2017 11.01 DOCTOR: Romie Vidales Interpretating Date/Time 03/15/2018 08:20:12
--- NOTE | 2018-03-15 08:35 | EKG ---
Date Performed: 03/13/2018 Time Performed: 09:14:36 PTAGE: 53 years EKG: Sinus rhythm NORMAL ECG INTERPRETATION BASED ON A DEFAULT AGE OF 40 YEARS NO PREVIOUS TRACING DOCTOR: Romie Vidales Interpretating Date/Time 03/15/2018 08:23:53
== END 2018-03-14 15:15 | disposition home or self-care (01) ==
LOC: PHED 09:06 → PHEDA 11:43 → PH3A 13:33
PROVIDERS: ADMIT Hospitalist; ATTEND Hospitalist
DX: R07.1 Chest pain on breathing (principal); J06.9 Acute upper respiratory infection, unspecified; E11.9 Type 2 diabetes mellitus without complications; K21.9 Gastro-esophageal reflux disease without esophagitis; R79.1 Abnormal coagulation profile
CPT/HCPCS: 71045; 71275; 74174; 78452; 80053; 82550; 82552; 82948; 83735; 84484; 85025; 85379; 85610; 85730; 93005; 93017; 94664; 96360; 96361; 99285; A9502; G0378; J2785; J7030; J7613; Q9967